=== PATIENT | female | born 1990 | race American Indian/Alaskan Native ===

== ENCOUNTER 2017-10-11 15:55 | Inpatient (IN) | payer SELFPAY ==
[2017-10-11 16:46] LABS: Eosinophils % (Auto) 0.1 % (0.0-4.3); Hematocrit 37.4 % (30.3-42.9); Hemoglobin 12.7 gm/dl (10.1-14.3); Lymphocytes # (Auto) 0.8 K/mm3 (1.2-5.4); Lymphocytes % (Auto) 16.2 % (13.4-35.0); Mean Corpuscular HGB Conc 34 % (30-34); Mean Corpuscular Hemoglobin 32 pg (28-32); Mean Corpuscular Volume 94 fl (79-97); Monocytes # (Auto) 0.3 K/mm3 (0.0-0.8); Platelet Count 321 K/mm3 (140-440); Red Blood Count 3.99 M/mm3 (3.65-5.03); Red Cell Distribution Width 12.3 % (13.2-15.2)
[2017-10-11 17:01] LABS: BUN/Creatinine Ratio 13; Blood Urea Nitrogen 8 mg/dL (7-17); Calcium 9.1 mg/dL (8.4-10.2); Hemolysis Index 55
[2017-10-11] MEDS ORDERED: NACL 0.9% 1000 ML 1,000 ML IV ONE (17:05)
--- NOTE | 2017-10-11 17:08 | Emergency Department Report ---
HPI - General Chief Complaint: Psych Time Seen by Provider: 10/11/17 17:01 - HPI HPI: The patient's 27-year-old female whom presents for evaluation status post intentional overdose. The patient states that she took approximately 20 Tylenol and 20 Motrin 4-5 hours prior to arrival. She complains of mild cramping upper abdominal pain, currently 2/10 in severity, constant for the past 2 hours. She admits to knowing taking an excess amount of Tylenol and Motrin. She admits to feeling severely depressed and hopeless as well. The patient denies fever, chest pain, dyspnea, cough, hemoptysis, syncope, diarrhea , blood in the stool, dark tarry stool, dysuria, hematuria, suicidal ideations, or hallucinations. ED Past Medical Hx - Past Medical History Previous Medical History?: No - Surgical History Past Surgical History?: No - Social History Smoking Status: Unknown if ever smoked Substance Use Type: None ED Review of Systems ROS: Stated complaint: MH EVALUATION Other details as noted in HPI Constitutional: denies: fever ENT: denies: throat or neck pain Respiratory: denies: cough, shortness of breath Cardiovascular: denies: chest pain Endocrine: denies unexplained weight loss or gain Gastrointestinal: reports abdominal pain, nausea Genitourinary: denies: dysuria Musculoskeletal: denies: leg swelling Skin: denies: rash Neurological: denies: headache Hematological/Lymphatic: denies: easy bleeding or easy bruising Psych: reports sadness or hopelessness Physical Exam - Physical Exam Vital Signs: Vital Signs 10/11/17 16:12 Temperature 98.4 F Pulse Rate 118 H Respiratory 18 Rate Blood Pressure 142/82 O2 Sat by Pulse 99 Oximetry Physical Exam: General: well-nourished, well-developed, no acute distress Head: Normocephalic, atraumatic Eyes: normal sclera ENT: Mucous membranes are pale and dry Neck: No neck stiffness, no cervical adenopathy Respiratory: Breath sounds equal bilaterally, no wheezing, rales, or rhonchi Cardio: S1 and S2 present, no murmurs, rubs, gallops, capillary refill is delayed Abdomen: Normoactive bowel sounds, soft abdomen, epigastric tenderness to palpation present, no rigidity, no guarding or rebound tenderness Chest WALL/Back: No tenderness to palpation of the chest wall, no CVA tenderness with percussion Musc: No pitting edema Skin: No rash Neuro: no facial drooping, normal speech Psych: Normal affect ED Course Vital Signs 10/11/17 16:12 Temperature 98.4 F Pulse Rate 118 H Respiratory 18 Rate Blood Pressure 142/82 O2 Sat by Pulse 99 Oximetry ED Medical Decision Making - Lab Data Result diagrams: 10/11/17 16:33 10/11/17 16:33 - Medical Decision Making The patient was seen and examined by myself. The patient is placed on a crystal slicer and continuous pulse ox. On initial evaluation, the patient was found to be in no distress. Evaluation orders were placed. The patient given pain medicine and normal saline fluid bolus. Lab results revealed elevated Tylenol level of near 140. Poison control was contacted and they recommend initiation of acetylcysteine for txt of tylenol overdose. The recommended q4hr tylenol & LFT levels until tylenol levels downtrending. Also recommended continuing q4 hours LFTs until downtrending for 2 sets in a row should LFTs rise prior to tylenol downtrending. The on-call hospitalist service was contacted. They agreed to admit the patient for further treatment and close monitoring. The ED admit order was placed. The patient was admitted in guarded condition. Critical care attestation.: If time is entered above; I have spent that time in minutes in the direct care of this critically ill patient, excluding procedure time. ED Disposition Clinical Impression: Self-harming behavior, Dehydration Intentional acetaminophen overdose Qualifiers: Encounter type: initial encounter Qualified Code(s): T39.1X2A - Poisoning by 4- Aminophenol derivatives, intentional self-harm, initial encounter Suicidal behavior Qualifiers: Attempted self-injury: with attempted self-injury Qualified Code(s): T14.91XA - Suicide attempt, initial encounter Disposition: 09 OP ADMIT IP TO THIS HOSP Is pt being admited?: Yes Does the pt Need Aspirin: Yes Condition: Serious Time of Disposition: 17:08
[2017-10-11 17:13] LABS: Bilirubin,Urine NEG (Negative); Blood,Urine NEG (Negative); Color,Urine Yellow (Yellow); Mucus,Urine FEW /HPF; Nitrite,Urine NEG (Negative); Urobilinogen,Urine < 2.0 mg/dL (<2.0)
[2017-10-11 17:28] LABS: Amphetamine Screen,Urine PRESUMPTIVE NEGATIVE; Benzodiazepines Screen,Urine PRESUMPTIVE NEGATIVE; Cocaine Screen,Urine PRESUMPTIVE NEGATIVE; Methadone Screen,Urine PRESUMPTIVE NEGATIVE; Opiate Screen,Urine PRESUMPTIVE NEGATIVE
[2017-10-11 17:34] LABS: Cannabinoid Screen,Urine PRESUMPTIVE POSITIVE
[2017-10-11 17:39] LABS: Alanine Aminotransferase 8 units/L (7-56); Albumin 4.3 g/dL (3.9-5); Lipase 21 units/L (13-60)
[2017-10-11 17:43] LABS: Bilirubin,Direct < 0.2 mg/dL (0-0.2)
[2017-10-11] MEDS ORDERED: ACETADOTE IV ONE ×3 (18:52→23:53)
[2017-10-11] MEDS ORDERED: D5W IV ONE ×3 (18:52→23:53)
--- NOTE | 2017-10-11 19:31 | History and Physical Report ---
History of Present Illness Chief complaint: I aint crazy, i just never been through anything like this. History of present illness: 27 YO Female with no PMH presents to ED for evaluation. Pt states that she took a lot of tylenol tablets. Pt states that she intended to kill herself, but also states that she is not crazy. Pt denies fever, chills, CP, Palpitations, syncope , abdominal pain, brbpr, hematemesis, or recent ill contacts. Pt minimally cooperative with interview and does not provide additional history. Pt seen and evaluated in ED and found to have an Acetaminophen level of 139.6. Poison control was contacted and recommended: initiation of acetylcysteine, as well as Q4 hour Liver function tests until tylenol levels downtrending. Poison Control Also recommended continuing q4 hours LFTs until downtrending LFT's for 2 consecutive sets. Pt admitted to ICU for monitoring. Past History Past Medical History: No medical history, other (reviewed) Past Surgical History: No surgical history, Other (reviewed) Social history: single Family history: no significant family history (reviewed) Medications and Allergies Allergies Allergy/AdvReac Type Severity Reaction Status Date / Time No Known Allergies Allergy Unverified 10/11/17 16:15 Active Meds: Active Medications Acetylcysteine 11,225 mg/ (Dextrose) 256.125 mls @ 256.125 mls/hr IV ONCE.ED ONE Stop: 10/11/17 19:51 Last Admin: 10/11/17 19:23 Dose: 256.125 mls/hr Acetylcysteine 3,740 mg/ (Dextrose) 518.7 mls @ 129.675 mls/hr IV ONCE.ED ONE Stop: 10/11/17 23:52 Acetylcysteine 7,485 mg/ (Dextrose) 1,037.425 mls @ 69.162 mls/hr IV ONCE.ED ONE Stop: 10/12/17 14:52 Review of Systems Constitutional: no weight loss, no weight gain, no fever, no chills Ears, nose, mouth and throat: no ear pain, no ear discharge, no tinnitis, no decreased hearing, no nose pain, no nasal congestion, no nasal discharge Breasts: no change in shape, no swelling, no mass Cardiovascular: no chest pain, no orthopnea, no palpitations, no rapid/ irregular heart beat, no edema, no shortness of breath Respiratory: no cough, no cough with sputum, no excessive sputum, no hemoptysis , no shortness of breath Gastrointestinal: no abdominal pain, no nausea, no vomiting, no diarrhea Genitourinary Female: no pelvic pain, no flank pain, no menorrhagia, no dysuria , no urinary frequency, no urgency Rectal: no pain, no incontinence, no bleeding Musculoskeletal: no neck stiffness, no neck pain, no shooting arm pain, no arm numbness/tingling, no low back pain Integumentary: no rash, no pruritis, no redness, no sores, no wounds, no jaundice, no boils Neurological: no paralysis, no weakness, no parathesias, no numbness, no tingling Psychiatric: no anxiety, no memory loss, no change in sleep habits, no insomnia , no hypersomnia, no change in appetite Endocrine: no cold intolerance, no heat intolerance, no polyphagia, no excessive thirst, no polydipsia, no polyuria, no nocturia Hematologic/Lymphatic: no easy bruising, no easy bleeding, no lymphadenopathy, no lymphedema Allergic/Immunologic: no urticaria, no allergic rhinitis, no wheezing, no persistent infections Exam - Constitutional Vitals: Temp Pulse Resp BP Pulse Ox 98.4 F 101 H 19 105/63 99 10/11/17 16:12 10/11/17 18:45 10/11/17 18:45 10/11/17 18:45 10/11/17 16:12 General appearance: Present: mild distress - EENT Eyes: Present: PERRL ENT: hearing intact, clear oral mucosa - Neck Neck: Present: supple, normal ROM - Respiratory Respiratory effort: normal Respiratory: bilateral: CTA - Cardiovascular Heart Sounds: Present: S1 & S2. Absent: rub, click - Extremities Extremities: pulses symmetrical, No edema Peripheral Pulses: within normal limits - Abdominal General gastrointestinal: Present: soft, tender, non-distended, normal bowel sounds. Absent: hepatomegaly, splenomegaly, mass, hernia Localized gastrointestinal: tender: RUQ Female genitourinary: Present: normal - Integumentary Integumentary: Present: clear, warm, dry - Musculoskeletal Musculoskeletal: generalized weakness - Psychiatric Psychiatric: appropriate mood/affect, intact judgment & insight - Neurologic Neurologic: CNII-XII intact, moves all extremities Results - Labs CBC & Chem 7: 10/11/17 16:33 10/11/17 16:33 Labs: Abnormal lab results 10/11/17 10/11/17 10/11/17 Range/Units 16:33 16:33 16:33 RDW (13.2-15.2) % Lymph # (1.2-5.4) K/mm3 Seg Neutrophils % (40.0-70.0) % Creatinine 0.6 L (0.7-1.2) mg/dL Alkaline Phosphatase (35-129) units/L Salicylates < 0.3 L (2.8-20.0) mg/dL Acetaminophen 139.6 H (10.0-30.0) ug/mL 10/11/17 10/11/17 Range/Units 16:33 16:33 RDW 12.3 L (13.2-15.2) % Lymph # 0.8 L (1.2-5.4) K/mm3 Seg Neutrophils % 77.7 H (40.0-70.0) % Creatinine (0.7-1.2) mg/dL Alkaline Phosphatase 33 L (35-129) units/L Salicylates (2.8-20.0) mg/dL Acetaminophen (10.0-30.0) ug/mL Assessment and Plan - Patient Problems (1) Intentional acetaminophen overdose Current Visit: Yes Status: Acute Qualifiers: Encounter type: initial encounter Qualified Code(s): T39.1X2A - Poisoning by 4-Aminophenol derivatives, intentional self-harm, initial encounter Plan to address problem: Poison control notified, mucomyst drip as per recommendation. serial LFT's q 4 hours. supportive care. The high probability of a clinically significant, sudden or life threatening deterioration of the [hepatic, endocrine, pulmonary] system(s) required my full and direct attention, intervention and personal management. The aggregate critical care time was [65] minutes. This time is in addition to time spent performing reported procedures but includes the following: [x] Data Review and interpretation [x] Patient assessment and monitoring of vital signs [x] Documentation [x] Medication orders and management (2) Suicidal behavior Current Visit: Yes Status: Acute Qualifiers: Attempted self-injury: with attempted self-injury Qualified Code(s): T14.91XA - Suicide attempt, initial encounter Plan to address problem: [address] place, psychiatry consulted. (3) DVT prophylaxis Current Visit: Yes Status: Acute
[2017-10-11 22:04] LABS: Alanine Aminotransferase 6 units/L (7-56); Albumin 3.7 g/dL (3.9-5)
[2017-10-11 22:15] LABS: Bilirubin,Direct < 0.2 mg/dL (0-0.2)
[2017-10-12] MEDS ORDERED: TORADOL IV ONE (00:25)
[2017-10-12 01:58] LABS: Albumin 3.5 g/dL (3.9-5)
[2017-10-12 02:04] LABS: Alanine Aminotransferase < 5 units/L (7-56); Bilirubin,Direct < 0.2 mg/dL (0-0.2)
[2017-10-12 05:44] LABS: Albumin 3.5 g/dL (3.9-5); Bilirubin,Direct 0.2 mg/dL (0-0.2)
[2017-10-12 10:48] LABS: Albumin 3.5 g/dL (3.9-5); Bilirubin,Direct 0.3 mg/dL (0-0.2)
[2017-10-12 14:40] LABS: Albumin 3.7 g/dL (3.9-5); Bilirubin,Direct 0.3 mg/dL (0-0.2)
--- NOTE | 2017-10-12 15:52 | Progress Note ---
Assessment and Plan Assessment and plan: Acetaminophen poisoning with intent of killing herself - Acetaminophen level of 139 at presentation - Poison control and contacted and recommended to start N-acetylcysteine - This morning after coming to the level was < 15 which is with in normal limit , transaminases within normal limit, slight elevation in bilirubin - INR is pending - Finish N-acetylcysteine, patient is stable to be downgraded to medical floor Suicidal ideation/intent -Mental health is consulted - Patient is on 1013 Disposition - Continue inpatient care -Pending psych evaluation History Interval history: Patient was seen and evaluated this morning, patient denied abdominal pain, nausea, vomiting or bleeding. Hospitalist Physical - Physical exam Narrative exam: Not in cardiopulmonary distress. The patient appeared well nourished and normally developed. Vital signs as documented. Head exam is unremarkable. No scleral icterus . Neck is without jugular venous distension, thyromegaly, or carotid bruits. Lungs are clear to auscultation. Cardiac exam reveals regular rate and Rhythm. First and second heart sounds normal. No murmurs, rubs or gallops. Abdominal exam reveals normal bowel sounds, no masses, no organomegaly and no aortic enlargement. Extremities are nonedematous and both femoral and pedal pulses are normal. [employer]: Alert and oriented 3. No focal weakness. - Constitutional Vitals: Temp Pulse Resp BP Pulse Ox 98.7 F 85 16 102/62 100 10/12/17 08:38 10/12/17 15:29 10/12/17 15:29 10/12/17 08:38 10/12/17 08:38 General appearance: Present: mild distress Results - Labs CBC & Chem 7: 10/11/17 16:33 10/11/17 16:33 Labs: Laboratory Last Values WBC 5.1 K/mm3 (4.5-11.0) 10/11/17 16:33 RBC 3.99 M/mm3 (3.65-5.03) 10/11/17 16:33 Hgb 12.7 gm/dl (10.1-14.3) 10/11/17 16:33 Hct 37.4 % (30.3-42.9) 10/11/17 16:33 MCV 94 fl (79-97) 10/11/17 16:33 MCH 32 pg (28-32) 10/11/17 16:33 MCHC 34 % (30-34) 10/11/17 16:33 RDW 12.3 % (13.2-15.2) L 10/11/17 16:33 Plt Count 321 K/mm3 (140-440) 10/11/17 16:33 Lymph % (Auto) 16.2 % (13.4-35.0) 10/11/17 16:33 [place] % (Auto) 5.0 % (0.0-7.3) 10/11/17 16:33 Eos % (Auto) 0.1 % (0.0-4.3) 10/11/17 16:33 Baso % (Auto) 1.0 % (0.0-1.8) 10/11/17 16:33 Lymph # 0.8 K/mm3 (1.2-5.4) L 10/11/17 16:33 [place] # 0.3 K/mm3 (0.0-0.8) 10/11/17 16:33 Eos # 0.0 K/mm3 (0.0-0.4) 10/11/17 16:33 Baso # 0.0 K/mm3 (0.0-0.1) 10/11/17 16:33 Seg Neutrophils % 77.7 % (40.0-70.0) H 10/11/17 16:33 Seg Neutrophils # 3.9 K/mm3 (1.8-7.7) 10/11/17 16:33 Sodium 140 mmol/L (137-145) 10/11/17 16:33 Potassium 4.1 mmol/L (3.6-5.0) 10/11/17 16:33 Chloride 101.9 mmol/L (98-107) 10/11/17 16:33 Carbon Dioxide 22 mmol/L (22-30) 10/11/17 16:33 Anion Gap 20 mmol/L 10/11/17 16:33 BUN 8 mg/dL (7-17) 10/11/17 16:33 Creatinine 0.6 mg/dL (0.7-1.2) L 10/11/17 16:33 Estimated GFR > 60 ml/min 10/11/17 16:33 BUN/Creatinine Ratio 13 % 10/11/17 16:33 Glucose 100 mg/dL (65-100) 10/11/17 16:33 Calcium 9.1 mg/dL (8.4-10.2) 10/11/17 16:33 Total Bilirubin 1.70 mg/dL (0.1-1.2) H 10/12/17 14:04 Direct Bilirubin 0.3 mg/dL (0-0.2) H 10/12/17 14:04 Indirect Bilirubin 1.4 mg/dL 10/12/17 14:04 AST 9 units/L (5-40) 10/12/17 14:04 ALT 7 units/L (7-56) 10/12/17 14:04 Alkaline Phosphatase 28 units/L (35-129) L 10/12/17 14:04 Total Protein 6.5 g/dL (6.3-8.2) 10/12/17 14:04 Albumin 3.7 g/dL (3.9-5) L 10/12/17 14:04 Albumin/Globulin Ratio 1.3 % 10/12/17 14:04 Lipase 21 units/L (13-60) 10/11/17 16:33 HCG, Qual Negative (Negative) 10/11/17 16:33 Urine Color Yellow (Yellow) 10/11/17 16:50 Urine Turbidity Clear (Clear) 10/11/17 16:50 Urine pH 5.0 (5.0-7.0) 10/11/17 16:50 Ur Specific [place] 1.019 (1.003-1.030) 10/11/17 16:50 Urine Protein 30 mg/dl mg/dL (Negative) 10/11/17 16:50 Urine Glucose (UA) Neg mg/dL (Negative) 10/11/17 16:50 Urine Ketones Neg mg/dL (Negative) 10/11/17 16:50 Urine Blood Neg (Negative) 10/11/17 16:50 Urine Nitrite Neg (Negative) 10/11/17 16:50 Urine Bilirubin Neg (Negative) 10/11/17 16:50 Urine Urobilinogen < 2.0 mg/dL (<2.0) 10/11/17 16:50 Ur Leukocyte Esterase Neg (Negative) 10/11/17 16:50 Urine WBC (Auto) 4.0 /HPF (0.0-6.0) 10/11/17 16:50 Urine RBC (Auto) 2.0 /HPF (0.0-6.0) 10/11/17 16:50 U Epithel Cells (Auto) 3.0 /HPF (0-13.0) 10/11/17 16:50 Urine Mucus Few /HPF 10/11/17 16:50 Salicylates < 0.3 mg/dL (2.8-20.0) L 10/11/17 16:33 Urine Opiates Screen Presumptive negative 10/11/17 16:50 Urine Methadone Screen Presumptive negative 10/11/17 16:50 Acetaminophen < 15.0 ug/mL (10.0-30.0) 10/12/17 10:08 Ur Barbiturates Screen Presumptive negative 10/11/17 16:50 Ur Phencyclidine Scrn Presumptive negative 10/11/17 16:50 Ur Amphetamines Screen Presumptive negative 10/11/17 16:50 U Benzodiazepines Scrn Presumptive negative 10/11/17 16:50 Urine Cocaine Screen Presumptive negative 10/11/17 16:50 U Marijuana (THC) Screen Presumptive positive 10/11/17 16:50 Drugs of Abuse Note Disclamer 10/11/17 16:50 Plasma/Serum Alcohol < 0.01 % (0-0.07) 10/11/17 16:33
[2017-10-12 15:56] LABS: INR 0.84 (0.87-1.13)
[2017-10-12 16:15] LABS: Partial Thromboplastin Time 21.7 Sec. (24.2-36.6)
[2017-10-12 16:33] LABS: Albumin 3.5 g/dL (3.9-5); Bilirubin,Direct 0.3 mg/dL (0-0.2)
[2017-10-12] MEDS ORDERED: ATIVAN IV PRN (17:24)
[2017-10-12 18:48] LABS: Albumin 3.8 g/dL (3.9-5); Bilirubin,Direct 0.3 mg/dL (0-0.2)
[2017-10-13] LABS: Albumin 3.3 g/dL (3.9-5); Bilirubin,Direct 0.3 mg/dL (0-0.2)
[2017-10-13] MEDS ORDERED: NACL 0.9% 1000 ML 1,000 ML IV SCH (03:00)
[2017-10-13 04:49] LABS: BUN/Creatinine Ratio 28; Blood Urea Nitrogen 11 mg/dL (7-17); Calcium 8.1 mg/dL (8.4-10.2); Hemolysis Index 14
[2017-10-13] MEDS ORDERED: K-DUR PO NR (09:00)
[2017-10-13 10:29] LABS: INR 0.98 (0.87-1.13)
[2017-10-13 10:30] LABS: Partial Thromboplastin Time 28.4 Sec. (24.2-36.6)
--- NOTE | 2017-10-13 12:08 | Event Note ---
Date: 10/13/17 Came to evaluate patient per orders for pulmonary consult. Chart shows that patient orders were secondary to initial intent to admit to the ICU. Currently , the patient's admitted to the floor under IMS care and monitoring for self Attempted injury. Therefore, will sign off and feel free to reconsult if needed
--- NOTE | 2017-10-13 14:06 | Consultation ---
History of Present Illness - Reason for Consult Consult date: 10/13/17 Reason for consult: Mental Health Evaluation Requesting physician: YOLANDE STOCKTON - Chief Complaint Chief complaint: "I am not crazy" - History of Present Psychiatric Illness The patient's 27-year-old female whom presents for evaluation status post intentional overdose. Today the patient is calm during the assessment. She did admit to taking 20 tylenol and 20 advil pills to kill herself prior to her admission. She stated that she didn't want to live because of life stressors ( financial, relationship, and family dynamic issues). She stated that her rent is "behind" and her son live with her sister per a pending [facility] case. She stated that these things has "overwhelmed" her. She denies a mental health dx and any prior suicide attempts. When asked about how this could have been avoided, she stated, "I am not crazy and I want to go home." She denies SI/HI's and AVH's. She denies any manic episodes in the past. She denies recreational drug use, but she is positive for marijuana. She denies alcohol consumption ( etoh). Medications and Allergies Allergies Allergy/AdvReac Type Severity Reaction Status Date / Time No Known Allergies Allergy Unverified 10/11/17 16:15 Home Medications Medication Instructions Recorded Confirmed Last Taken Type No Known Home Medications [No 10/13/17 10/13/17 Unknown History Reported Home Medications] Active Meds: Active Medications Lorazepam (Ativan) 1 mg IV Q4H PRN PRN Reason: Agitation Past psychiatric history - Past Medical History Past Medical History: No medical history Past Surgical History: No surgical history - past Psychiatric treatment and history psychiatric treatment history: Denies a psy hx and fam psy hx. - Social History Social history: Lives alone Mental Status Exam - Vital signs Last Vital Signs Temp 99.0 F 10/13/17 08:39 Pulse 69 10/13/17 08:39 Resp 16 10/13/17 08:39 BP 113/69 10/13/17 08:39 Pulse Ox 98 10/13/17 08:39 - Exam Narrative exam: MSE: Appearance: calm, cooperative Behavior: regular eye contact Speech: regular rate and tone Mood: "okay" withdrawn Affect: congruent to mood Thought Process: circumstantial Thought Content: denies SI/HI's and AVH's, disorganized Motor Activity: ambulatory Cognition: A/O x3 Insight: variable Judgment: variable Results Result Diagrams: 10/11/17 16:33 10/13/17 04:09 Abnormal lab results 10/12/17 10/12/17 10/12/17 Range/Units 14:04 15:33 15:33 PT 11.9 L (12.2-14.9) Sec. INR 0.84 L (0.87-1.13) APTT 21.7 L (24.2-36.6) Sec. Potassium (3.6-5.0) mmol/L Creatinine (0.7-1.2) mg/dL Calcium (8.4-10.2) mg/dL Total Bilirubin 1.70 H 1.60 H (0.1-1.2) mg/dL Direct Bilirubin 0.3 H 0.3 H (0-0.2) mg/dL ALT 6 L (7-56) units/L Alkaline Phosphatase 28 L 29 L (35-129) units/L Total Protein 6.1 L (6.3-8.2) g/dL Albumin 3.7 L 3.5 L (3.9-5) g/dL 10/12/17 10/12/17 10/13/17 Range/Units 17:45 23:28 04:09 PT (12.2-14.9) Sec. INR (0.87-1.13) APTT (24.2-36.6) Sec. Potassium 3.4 L (3.6-5.0) mmol/L Creatinine 0.4 L (0.7-1.2) mg/dL Calcium 8.1 L (8.4-10.2) mg/dL Total Bilirubin 1.80 H 1.70 H (0.1-1.2) mg/dL Direct Bilirubin 0.3 H 0.3 H (0-0.2) mg/dL ALT 6 L (7-56) units/L Alkaline Phosphatase 30 L 29 L (35-129) units/L Total Protein 6.0 L (6.3-8.2) g/dL Albumin 3.8 L 3.3 L (3.9-5) g/dL All other labs normal. Assessment and Plan Assessment and plan: Impression: MDD, Severe Type. Cannabis Use DO. Today the patient is calm during the assessment. The patient minimizes her actions. DDx: R/O Bipolar DO Recommendation/Plan: Continue 1013 with placement to inpatient psy services. Discussed risk/benefits of antidepressants with patient. The patient does not want to take any medication at this time. Discussed generalized coping skills with patient.
--- NOTE | 2017-10-13 14:37 | Progress Note ---
Assessment and Plan Assessment and plan: Acetaminophen poisoning with intent of killing herself - Acetaminophen level of 139 at presentation - Poison control and contacted and recommended to start N-acetylcysteine - Acetaminophen level < 15 which is with in normal limit, transaminases within normal limit, slight elevation in bilirubin - INR is WNL -Treated with N-acetylcysteine Suicidal ideation/intent -Mental health is consulted and pending their recommendations - Patient is on 1013 Disposition - psych evaluation Pending recommendation - Patient is cleared medically History Interval history: Patient was seen and evaluated this morning, patient said she has lower abdominal cramp due to her period but no RUQ pain. Hospitalist Physical - Physical exam Narrative exam: Not in cardiopulmonary distress. The patient appeared well nourished and normally developed. Vital signs as documented. Head exam is unremarkable. No scleral icterus . Neck is without jugular venous distension, thyromegaly, or carotid bruits. Lungs are clear to auscultation. Cardiac exam reveals regular rate and Rhythm. First and second heart sounds normal. No murmurs, rubs or gallops. Abdominal exam reveals normal bowel sounds, no masses, no organomegaly and no aortic enlargement. Extremities are nonedematous and both femoral and pedal pulses are normal. GENERATOR OPERATOR: Alert and oriented 3. No focal weakness. - Constitutional Vitals: Temp Pulse Resp BP Pulse Ox 99.0 F 69 16 113/69 98 10/13/17 08:39 10/13/17 08:39 10/13/17 08:39 10/13/17 08:39 10/13/17 08:39 General appearance: Present: mild distress Results - Labs CBC & Chem 7: 10/11/17 16:33 10/13/17 04:09 Labs: Laboratory Last Values WBC 5.1 K/mm3 (4.5-11.0) 10/11/17 16:33 RBC 3.99 M/mm3 (3.65-5.03) 10/11/17 16:33 Hgb 12.7 gm/dl (10.1-14.3) 10/11/17 16:33 Hct 37.4 % (30.3-42.9) 10/11/17 16:33 MCV 94 fl (79-97) 10/11/17 16:33 MCH 32 pg (28-32) 10/11/17 16:33 MCHC 34 % (30-34) 10/11/17 16:33 RDW 12.3 % (13.2-15.2) L 10/11/17 16:33 Plt Count 321 K/mm3 (140-440) 10/11/17 16:33 Lymph % (Auto) 16.2 % (13.4-35.0) 10/11/17 16:33 [place] % (Auto) 5.0 % (0.0-7.3) 10/11/17 16:33 Eos % (Auto) 0.1 % (0.0-4.3) 10/11/17 16:33 Baso % (Auto) 1.0 % (0.0-1.8) 10/11/17 16:33 Lymph # 0.8 K/mm3 (1.2-5.4) L 10/11/17 16:33 [place] # 0.3 K/mm3 (0.0-0.8) 10/11/17 16:33 Eos # 0.0 K/mm3 (0.0-0.4) 10/11/17 16:33 Baso # 0.0 K/mm3 (0.0-0.1) 10/11/17 16:33 Seg Neutrophils % 77.7 % (40.0-70.0) H 10/11/17 16:33 Seg Neutrophils # 3.9 K/mm3 (1.8-7.7) 10/11/17 16:33 PT 13.5 Sec. (12.2-14.9) 10/13/17 09:20 INR 0.98 (0.87-1.13) 10/13/17 09:20 APTT 28.4 Sec. (24.2-36.6) 10/13/17 09:20 Sodium 140 mmol/L (137-145) 10/13/17 04:09 Potassium 3.4 mmol/L (3.6-5.0) L 10/13/17 04:09 Chloride 105.3 mmol/L (98-107) 10/13/17 04:09 Carbon Dioxide 22 mmol/L (22-30) 10/13/17 04:09 Anion Gap 16 mmol/L 10/13/17 04:09 BUN 11 mg/dL (7-17) 10/13/17 04:09 Creatinine 0.4 mg/dL (0.7-1.2) L 10/13/17 04:09 Estimated GFR > 60 ml/min 10/13/17 04:09 BUN/Creatinine Ratio 28 % 10/13/17 04:09 Glucose 85 mg/dL (65-100) 10/13/17 04:09 Calcium 8.1 mg/dL (8.4-10.2) L 10/13/17 04:09 Total Bilirubin 1.70 mg/dL (0.1-1.2) H 10/12/17 23:28 Direct Bilirubin 0.3 mg/dL (0-0.2) H 10/12/17 23:28 Indirect Bilirubin 1.4 mg/dL 10/12/17 23:28 AST 9 units/L (5-40) 10/12/17 23:28 ALT 6 units/L (7-56) L 10/12/17 23:28 Alkaline Phosphatase 29 units/L (35-129) L 10/12/17 23:28 Total Protein 6.0 g/dL (6.3-8.2) L 10/12/17 23:28 Albumin 3.3 g/dL (3.9-5) L 10/12/17 23:28 Albumin/Globulin Ratio 1.2 % 10/12/17 23:28 Lipase 21 units/L (13-60) 10/11/17 16:33 HCG, Qual Negative (Negative) 10/11/17 16:33 Urine Color Yellow (Yellow) 10/11/17 16:50 Urine Turbidity Clear (Clear) 10/11/17 16:50 Urine pH 5.0 (5.0-7.0) 10/11/17 16:50 Ur Specific [place] 1.019 (1.003-1.030) 10/11/17 16:50 Urine Protein 30 mg/dl mg/dL (Negative) 10/11/17 16:50 Urine Glucose (UA) Neg mg/dL (Negative) 10/11/17 16:50 Urine Ketones Neg mg/dL (Negative) 10/11/17 16:50 Urine Blood Neg (Negative) 10/11/17 16:50 Urine Nitrite Neg (Negative) 10/11/17 16:50 Urine Bilirubin Neg (Negative) 10/11/17 16:50 Urine Urobilinogen < 2.0 mg/dL (<2.0) 10/11/17 16:50 Ur Leukocyte Esterase Neg (Negative) 10/11/17 16:50 Urine WBC (Auto) 4.0 /HPF (0.0-6.0) 10/11/17 16:50 Urine RBC (Auto) 2.0 /HPF (0.0-6.0) 10/11/17 16:50 U Epithel Cells (Auto) 3.0 /HPF (0-13.0) 10/11/17 16:50 Urine Mucus Few /HPF 10/11/17 16:50 Salicylates < 0.3 mg/dL (2.8-20.0) L 10/11/17 16:33 Urine Opiates Screen Presumptive negative 10/11/17 16:50 Urine Methadone Screen Presumptive negative 10/11/17 16:50 Acetaminophen 15.0 ug/mL (10.0-30.0) 10/12/17 15:33 Ur Barbiturates Screen Presumptive negative 10/11/17 16:50 Ur Phencyclidine Scrn Presumptive negative 10/11/17 16:50 Ur Amphetamines Screen Presumptive negative 10/11/17 16:50 U Benzodiazepines Scrn Presumptive negative 10/11/17 16:50 Urine Cocaine Screen Presumptive negative 10/11/17 16:50 U Marijuana (THC) Screen Presumptive positive 10/11/17 16:50 Drugs of Abuse Note Disclamer 10/11/17 16:50 Plasma/Serum Alcohol < 0.01 % (0-0.07) 10/11/17 16:33
[2017-10-14 07:23] LABS: Alanine Aminotransferase 5 units/L (7-56); Albumin 3.4 g/dL (3.9-5); BUN/Creatinine Ratio 16; Blood Urea Nitrogen 8 mg/dL (7-17); Calcium 8.5 mg/dL (8.4-10.2); Hemolysis Index 2
--- NOTE | 2017-10-14 10:42 | Progress Note ---
Subjective - Reason for Consult Consult date: 10/14/17 Reason for consult: Psychiatry Follow-up - Chief Complaint Chief complaint: "Life got the best of me" The patient's 27-year-old female whom presents for evaluation status post intentional overdose. Today the patient is calm and cooperative during the assessment. She stated that life got the best of her and she made a "terrible mistake" by taking multiple pills. She stated that she need an outlet at this time, because so many things is happening in her life. She stated that she is willing to take an antidepressant and seek therapy once she is discharged. She denies SI/HI's and AVH's when asked. Mental Status Exam - Vital signs Last Vital Signs Temp 99.0 F 10/14/17 08:03 Pulse 74 10/14/17 08:03 Resp 18 10/14/17 08:03 BP 106/61 10/14/17 08:03 Pulse Ox 96 10/14/17 08:03 - Exam Narrative exam: MSE: Appearance: calm, cooperative Behavior: regular eye contact Speech: regular rate and tone Mood: "okay" Affect: congruent to mood Thought Process: circumstantial Thought Content: denies SI/HI's and AVH's Motor Activity: ambulatory Cognition: A/O x3 Insight: fair Judgment: fair Assessment and Plan Impression: MDD, Severe Type. Cannabis Use DO. Today the patient is calm during the assessment. DDx: R/O Bipolar DO Recommendation/Plan: Continue 1013 with placement to inpatient psy services. Start Zoloft 25 mg PO daily for depression. Discussed possible suicidality/ medication induced milla with patient reference Zoloft. Discussed the importance to abstain from recreational drug use. Discussed generalized coping skills with patient.
--- NOTE | 2017-10-14 11:07 | Progress Note ---
Assessment and Plan /Acetaminophen overdose/poisoning - Acetaminophen level of 139 at presentation, treated with N-acetylcysteine - Acetaminophen level now dropped < 15 which is with in normal limit, transaminases within normal limit, slight elevation in bilirubin - INR is WNL /Suicidal ideation/intent -Mental health is consulted and Patient is on 1013 /depression Started on Zoloft 25 mg PO daily for depression /elevated bilirubin - due to Acetaminophen toxicity Disposition - psych following, need inpt psych placement - Patient is cleared medically Hospitalist Physical The patient appeared well nourished and normally developed. Not in cardiopulmonary distress. Vital signs as documented. Head exam is unremarkable. No scleral icterus . Neck is without jugular venous distension, thyromegaly, or carotid bruits. Lungs are clear to auscultation. Cardiac exam reveals regular rate and Rhythm. First and second heart sounds normal. No murmurs, rubs or gallops. Abdominal exam reveals normal bowel sounds, no masses, no organomegaly and no aortic enlargement. Extremities are nonedematous and both femoral and pedal pulses are normal. ELECTRONIC TECHNICIAN: Alert and oriented 3. No focal weakness. skin no rash Subjective Date of service: 10/14/17 Interval history: Patient was seen and evaluated this morning, denies any abdominal pain. Objective - Constitutional Vitals: Vital Signs - 12hr 10/14/17 08:03 Temperature 99.0 F Pulse Rate 74 Respiratory 18 Rate Blood Pressure 106/61 O2 Sat by Pulse 96 Oximetry - Labs CBC & Chem 7: 10/11/17 16:33 10/14/17 06:39 Labs: Abnormal lab results 10/14/17 Range/Units 06:39 Chloride 107.8 H (98-107) mmol/L Creatinine 0.5 L (0.7-1.2) mg/dL ALT 5 L (7-56) units/L Alkaline Phosphatase 27 L (35-129) units/L Total Protein 6.0 L (6.3-8.2) g/dL Albumin 3.4 L (3.9-5) g/dL
[2017-10-14] MEDS: ZOLOFT PO SCH (13:08)
[2017-10-15] MEDS: ZOLOFT PO SCH (10:21)
--- NOTE | 2017-10-15 14:26 | Progress Note ---
Assessment and Plan /Acetaminophen overdose/poisoning - Acetaminophen level of 139 at presentation, treated with N-acetylcysteine - Acetaminophen level now dropped < 15 which is with in normal limit, transaminases within normal limit, slight elevation in bilirubin, INR is WNL /Suicidal ideation/intent -Mental health is consulted and Patient is on 1013 /depression Started on Zoloft 25 mg PO daily for depression /Elevated bilirubin - due to Acetaminophen toxicity /hypokelamia, repleted and resolved Disposition - psych following, recommended inpt psych placement - Patient is cleared medically for discharge Hospitalist Physical The patient appeared well nourished and normally developed. Not in cardiopulmonary distress. Vital signs as documented. Head exam is unremarkable. No scleral icterus . Neck is without jugular venous distension, thyromegaly, or carotid bruits. Lungs are clear to auscultation. Cardiac exam reveals regular rate and Rhythm. First and second heart sounds normal. No murmurs, rubs or gallops. Abdominal exam reveals normal bowel sounds, no masses, no organomegaly and no aortic enlargement. Extremities are nonedematous and both femoral and pedal pulses are normal. FULL TIME STAFF INTERPRETER: Alert and oriented 3. No focal weakness. skin: no rash Subjective Date of service: 10/15/17 Interval history: Patient was seen and evaluated this morning, denies any abdominal pain. patient still on 1013, she denies any suicidal ideation today, refused to go to any inpt psych facility Objective - Constitutional Vitals: Vital Signs - 12hr 10/15/17 09:07 Temperature 98.7 F Pulse Rate 78 Respiratory 18 Rate Blood Pressure 103/54 O2 Sat by Pulse 98 Oximetry - Labs CBC & Chem 7: 10/11/17 16:33 10/14/17 06:39
[2017-10-16] MEDS: ZOLOFT PO SCH (10:10)
--- NOTE | 2017-10-16 12:06 | Progress Note ---
Subjective - Reason for Consult Consult date: 10/16/17 Reason for consult: Psychiatry Follow-up - Chief Complaint Chief complaint: "I am so sorry for my actions" The patient's 27-year-old female whom presents for evaluation status post intentional overdose. Today the patient is calm and cooperative during the assessment. She is adamant that she should have not taken pills to kill herself prior to her admission. She stated there are other ways of handling life stressors. She stated that she plan to move with her mom to lessen her financial responsibilities. She stated that she plan to continue to seek professional help (psychiatrist/therapist) once discharged. She denies SI/HI's and AVH's. She denies any side effects of her medication. Per collateral information from her mother Mackenzie Adames at [phone] she stated that this is the first time her daughter has every tried to harm herself. She stated that her daughter was under lots of stressed and was overwhelmed prior to her admission. She stated they have talked about the stressors and have plan in place to eliminate them. She confirmed that her daughter will move in with her once discharged. She stated that she plan to attend the sessions (outpatient psy services) with her daughter. She stated that she will apple picker her daughter from the hospital once discharge.. Mental Status Exam - Vital signs Last Vital Signs Temp 99.6 F 10/16/17 08:34 Pulse 89 10/16/17 08:34 Resp 18 10/16/17 08:34 BP 107/60 10/16/17 08:34 Pulse Ox 100 10/16/17 08:34 - Exam Narrative exam: MSE: Appearance: calm, cooperative Behavior: regular eye contact Speech: regular rate and tone Mood: "okay" Affect: congruent to mood Thought Process: logical Thought Content: denies SI/HI's and AVH's Motor Activity: ambulatory Cognition: A/O x3 Insight: appropriate Judgment: appropriate Assessment and Plan Impression: MDD, Severe Type. Cannabis Use DO. Today the patient is calm during the assessment. The patient is no threat to self. DDx: R/O Bipolar DO I. This screening and assessment is based on information collected from the following sources: II. SUICIDE RISK SCREENING (within last 30 days): A.) Suicidal thoughts/behaviors: yes SUICIDE RISK ASSESSMENT III. FACTORS THAT INCREASE RISK: A.) Demographic and Substance Use Factors: None B.) Current/Recent Factors (within past 3 months): Psychosocial/Environmental Factors: Life Stressors Physical Illness: None Cognitive/Psychological Factors: None C.) Historical Factors: None D.) Diagnostic/Symptom/Treatment Factors: None E.) Acute Risk Factor Severity (DESC; MILD/MOD/SEVERE): Mild Other factors for this individual that increase risk: None IV. FACTORS THAT DECREASE RISK: Resilience/Protective Factors: Patient want to decrease her stress Other factors for this individual that decrease risk: Patient denies a desire to harm self V. Clinician's Formulation of Risk and Determination of level of Care: This is a 27-year-old female who was experiencing stress and took multiple pills to end her life. She stated that she wanted to kill herself to ease the burden of life. She stated that she should have handled the situation differently. She stated her priority is to follow up with outpatient psy services once discharged. She stated that her mental stability is priority once discharged. Since being hospitalized the patient has consistently denied the desire to harm herself. Additionally, she has become insightful about how to better address her current issues. Patient is not impaired by substance. She is able to take care of her ADLs and is not at imminent risk of harm to self or others. Consequently, it is the opinion of the treatment team that the patient is at low risk of suicide and does not meet criteria to continue an involuntary psychiatric hold. Estimation of Imminent Risk: Low due to the above explanation. Determination of Level of Care based on Suicide Risk: Outpatient follow-up. Narrative description of clinical reasoning. (This must be completed on all patients): . Plan and Interventions based on Suicide Risk: This patient will likely be stepped down to an outpatient mental health center in the community upon discharge and follow-up within 7 days of her discharge from the hospital. VII. Discharge/After Hours Support Plan: Patient can return back to the ER, call 911 or crisis line if symptoms of depression, anxiety, suicidality return. Recommendation/Plan: Rescind 1013. Continue Zoloft 25 mg PO daily for depression. Discussed possible suicidality/medication induced milla with patient reference Zoloft. Discussed the importance to abstain from recreational drug use. Discussed generalized coping skills with patient. The patient can follow up with [facility] for outpatient psy services.
--- NOTE | 2017-10-16 16:52 | Discharge Summary ---
Providers - Providers Date of Admission: 10/11/17 18:39 Date of discharge: 10/16/17 Attending physician: CAMMIE GREEN 10/11/17 19:47 Consult to Physician [CONS] Routine Consulting Provider: ALEXANDRO JARVIS Reason For Exam: icu admission Place consult to:: Dr. Jarvis Notified:: Answering Service Phone number called:: [phone] Was contact made?: Yes If yes, spoke with:: Dr. Jarvis Time called:: 19:48 10/11/17 20:13 psychiatry consult [Consult to Mental Health] [CONS] Routine Reason For Exam: suicide attempt Place consult to:: psych/mental health (Maryan) Notified:: Maryan Phone number called:: [phone] Was contact made?: Yes If yes, spoke with:: Maryan Time called:: 08:23 Primary care physician: FLOTATION TANK OPERATOR Hospitalization Condition: Serious Hospital course: /Acetaminophen overdose/poisoning - Acetaminophen level of 139 at presentation, treated with N-acetylcysteine - Acetaminophen level now dropped < 15 which is with in normal limit, transaminases within normal limit, slight elevation in bilirubin, INR is WNL /Suicidal ideation/intent -Mental health is consulted and Patient is on 1013 /depression Started on Zoloft 25 mg PO daily for depression /Elevated bilirubin - due to Acetaminophen toxicity /hypokelamia, repleted and resolved Disposition - psych following, recommended inpt psych placement - Patient is cleared medically for discharge Hospitalist Physical The patient appeared well nourished and normally developed. Not in cardiopulmonary distress. Vital signs as documented. Head exam is unremarkable. No scleral icterus . Neck is without jugular venous distension, thyromegaly, or carotid bruits. Lungs are clear to auscultation. Cardiac exam reveals regular rate and Rhythm. First and second heart sounds normal. No murmurs, rubs or gallops. Abdominal exam reveals normal bowel sounds, no masses, no organomegaly and no aortic enlargement. Extremities are nonedematous and both femoral and pedal pulses are normal. MACHINE BURRER: Alert and oriented 3. No focal weakness. skin: no rash Disposition: DC- TO HOME OR SELFCARE Time spent for discharge: 32 minutes Exam - Constitutional Vitals: Temp Pulse Resp BP Pulse Ox 99.6 F 89 18 107/60 100 10/16/17 08:34 10/16/17 08:34 10/16/17 08:34 10/16/17 08:34 10/16/17 08:34 Plan Activity: advance as tolerated Weight Bearing Status: Weight Bear as Tolerated Diet: regular Additional Instructions: follow up with [facility] for outpatient psy services. Follow up with: PRIMARY CARE, [Primary Care Provider] - 3-5 Days Prescriptions: Sertraline [Zoloft] 25 mg PO QDAY #30 tablet
[2017-10-16 16:58] VITALS: BP 108/53
== END 2017-10-16 18:15 | disposition home or self-care (01) | DRG 918 ==
LOC: ED 15:55 → CC1 18:39 → 3A 10-13 06:26
PROVIDERS: ADMIT Internal Medicine; ATTEND Internal Medicine
DX: T39.1X2A Poisoning by 4-Aminophenol derivatives, intentional self-harm, initial encounter (principal); F32.2 Major depressive disorder, single episode, severe without psychotic features; E86.0 Dehydration; E87.6 Hypokalemia
CPT/HCPCS: 36415; 80048; 80053; 80074; 80307; 80320; 81001; 81025; 83690; 84703; 85025; 85610; 85730; 93005; 93010; G0480; J0132; J1885; J2060; J7030; J7060; J7070